=== PATIENT | male | born 1965 | race Hispanic/Latino ===

== ENCOUNTER 2017-12-27 17:10 | Observation (INO) | payer OTHER ==
--- NOTE | 2017-12-27 17:40 | ED PDOC ---
Arrival/HPI - General Chief Complaint: Chest Pain Time Seen by Provider: 12/27/17 17:30 Historian: Patient - History of Present Illness Narrative History of Present Illness (Text): 12/27/17 17:33 52 year old male, with elevated cholesterol hx, who presents to the emergency department complaining of chest pressure radiating to the left arm and jaw throughout the day. Patient notes associated SOB, dizziness/light headedness. Patient notes chest pain worsened upon arrival at a restaurant in [place]. Patient was subsequently brought in via EMS, who administered Aspirin and Nitroglycerin in the field. Patient experienced immediate relief from the medication. Patient notes he has experienced similar symptoms to prior discomfort in September. Patient denies any fevers, chills, sweats, abdominal pain, nausea, vomiting, diarrhea, back pain, neck pain, or any other complaint. pt denied LOC pt is here for further eval In sep 2017, pt also had similar chest pain complaint in his hometown of [place], where he had received nuclear stress tests/echo and was found to be negative; pt had been in contact with his cardiologists and was recommended next for Cardiac Catheterization PCP: Dr. 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[place]) Past Medical History - Provider Review Nursing Documentation Reviewed: Yes - Travel History Have you recently traveled outside [place] w/in the past 3 mons?: No - Past History Past History: No Previous - Infectious Disease Hx of Infectious Diseases: None - Tetanus Immunization Tetanus Immunization: Unknown Family/Social History - Physician Review Nursing Documentation Reviewed: Yes Family/Social History: Unknown Family HX Smoking Status: Current Some Days Smoker Frequency of alcohol use: Socially Hx Substance Use: No Hx Substance Use Treatment: No Allergies/Home Meds Allergies/Adverse Reactions: Allergies No Known Allergies Allergy (Verified 12/27/17 17:48) Home Medications: Home Meds Medication Instructions Recorded Confirmed No Known Home Med 12/27/17 12/27/17 Review of Systems - Review of Systems Constitutional: Normal Eyes: Normal ENT: Normal Respiratory: SOB Cardiovascular: Chest Pain (Chest pressure) Gastrointestinal: Normal. absent: Abdominal Pain, Diarrhea, Nausea, Vomiting Genitourinary Male: Normal. absent: Dysuria, Frequency, Hematuria, Urinary Output Changes Musculoskeletal: Normal. absent: Back Pain, Neck Pain Skin: Normal. absent: Rash Neurological: Dizziness Endocrine: Normal Hemo/Lymphatic: Normal Psychiatric: Normal Physical Exam Vital Signs Reviewed: Yes Vital Signs Temp Pulse Resp BP Pulse Ox 12/27/17 17:19 97.9 F 80 18 145/83 100 Temperature: Afebrile Blood Pressure: Hypertensive (mild) Pulse: Regular Respiratory Rate: Normal Appearance: Positive for: Well-Appearing, Non-Toxic, Uncomfortable, Other (alert /awake, GCS = 15, oriented x 3, resting in bed, uncomfortable, cooperative, NAD , follows command with ease) Pain Distress: None Mental Status: Positive for: Alert and Oriented X 3 - Systems Exam Head: Present: Atraumatic, Normocephalic Pupils: Present: PERRL, Other (no nystagmus, no photophobia, sclera anicteric, visual field intact b/l) Extroacular Muscles: Present: EOMI Conjunctiva: Present: Normal Ears: Present: Normal Mouth: Present: Moist Mucous Membranes, Normal Teeth, Other (uvula/tongue are midline, no exudate/lesions, intact dentitions, no drooling/stridor) Pharnyx: Present: Normal Nose (External): Present: Atraumatic Nose (Internal): Present: Normal Inspection Neck: Present: Normal Range of Motion, Trachea Midline, Other (intact ROM, no). No: Meningeal Signs, MIDLINE TENDERNESS Respiratory/Chest: Present: Clear to Auscultation, Good Air Exchange, Other ( CTA b/l, no w/r/r, no tachypenia). No: Respiratory Distress, Accessory Muscle Use Cardiovascular: Present: Regular Rate and Rhythm, Normal S1, S2. No: Murmurs Abdomen: Present: Normal Bowel Sounds, Other (well nourished male, no focal tenderness, no diane's sign, no mcburney's point tenderness, no masses/rebound/ guarding/rigidity). No: Tenderness, Distention, Peritoneal Signs Back: Present: Normal Inspection. No: CVA Tenderness, Midline Tenderness, Paraspinal Tenderness Upper Extremity: Present: Normal Inspection, Normal ROM, NORMAL PULSES, Neurovascularly Intact, Capillary Refill < 2s. No: Cyanosis, Edema Lower Extremity: Present: Normal Inspection, NORMAL PULSES, Normal ROM, Neurovascularly Intact, Capillary Refill < 2 s. No: Edema Neurological: Present: GCS=15, CN II-XII Intact, Speech Normal, Other (no facial asymmetries, no slurr speech, oriented x 3) Skin: Present: Warm, Normal Color, Other (cap refill < 1sec, no ulcerations, no petechiae). No: Rashes Psychiatric: Present: Alert, Oriented x 3, Normal Insight, Normal Concentration Medical Decision Making ED Course and Treatment: 12/27/17 17:42 Impression: 52 year old male who presents to the Emergency department complaining of chest pressure that radiates to the left arm and jaw. Differential Diagnosis included but are not limited to: Rule out ACS vs. Rule out PE Plan: R/O ACS -- labs -- acs eval -- IV -- observe -- Reassess and disposition Progress Notes: 1850 pt with decr chest pain, pt states pain is now 1-2/10 pt is awaiting lab results 12/27/17 19:50 Dr Cerna, hospitalists fabrication manager, contacted, made aware, agrees with admission pt remained comfortable, with negligible chest pain pt is made aware of his medical results agrees with admission/OBS Re-evaluation Time: 19:45 Reassessment Condition: Improved - Lab Interpretations Lab Results: 12/27/17 18:34 12/27/17 18:34 Lab Results 12/27/17 18:34: TSH 3rd Generation 1.34 12/27/17 18:34: Sodium 145, Potassium 3.5 L, Chloride 104, Carbon Dioxide 26, Anion Gap 19, BUN 12, Creatinine 0.8, Est GFR ( Amer) > 60, Est GFR (Non- Af Amer) > 60, Random Glucose 157 H, Calcium 9.6, Magnesium 2.0, Total Bilirubin 0.3, AST 33, ALT 39, Alkaline Phosphatase 60, Lactate Dehydrogenase 525, Total Creatine Kinase 61, Troponin I < 0.01, Total Protein 8.0, Albumin 4.8 , Globulin 3.3, Albumin/Globulin Ratio 1.5 12/27/17 18:34: PT 13.1 H, INR 1.15 H, APTT 32.5 12/27/17 18:34: WBC 6.4, RBC 4.37, Hgb 13.5 L, Hct 39.7 L, MCV 90.8, MCH 30.9, MCHC 34.0, RDW 12.8, Plt Count 251, MPV 10.4, Gran % 65.7, Lymph % (Auto) 28.0, Cobb % (Auto) 5.2, Eos % (Auto) 0.8 L, Baso % (Auto) 0.3, Gran # 4.17, Lymph # ( Auto) 1.8, Cobb # (Auto) 0.3, Eos # (Auto) 0.1, Baso # (Auto) 0.02 I have reviewed the lab results: Yes Interpretation: Abnormal lab values (slightly elevated GLUC) - RAD Interpretation Narrative RAD Interpretations (Text): 12/27/17 20:12 CXR - NAD, prelim Radiology Orders: 12/27/17 17:54 CHEST TWO VIEWS (PA/LAT) [RAD] Stat Core Piler: ED Physician - EKG Interpretation EKG Interpretation (Text): 12/27/17 19:54 NSR at 80 bpm, normal axis, + ectopy, qs in leads III/F, inverted T in leads V1 , no st changes, ABNL EKG; no old ekg to compare with Interpreted by ED Physician: Yes Type: 12 lead EKG Comparison: No previous EKG avail. - Medication Orders Current Medication Orders: Potassium Chloride (Klor-Con 10) 10 meq PO STAT STA Stop: 12/27/17 19:53 Discontinued Medications Nitroglycerin (Nitro-Bid 2% Oint) 1 ea TOP STAT STA Stop: 12/27/17 17:55 Last Admin: 12/27/17 18:48 Dose: 1 ea - Scribe Statement The provider has reviewed the documentation as recorded by the Scribe Yadira Lopez All medical record entries made by the Scribe were at my direction and personally dictated by me. I have reviewed the chart and agree that the record accurately reflects my personal performance of the history, physical exam, medical decision making, and the department course for this patient. I have also personally directed, reviewed, and agree with the discharge instructions and disposition. Disposition/Present on Arrival - Present on Arrival Any Indicators Present on Arrival: No History of DVT/PE: No History of Uncontrolled Diabetes: No Urinary Catheter: No History of Decub. Ulcer: No History Surgical Site Infection Following: None - Disposition Have Diagnosis and Disposition been Completed?: Yes Diagnosis: Chest pain with minimal risk for cardiac etiology Disposition: HOSPITALIZED Disposition Time: 19:50 Patient Plan: Admission, Observation Condition: STABLE Discharge Instructions (ExitCare): Chest Pain (ED) Forms: [facility] ([employer])
[2017-12-27] MEDS ORDERED: Nitroglycerin 2% Ointment Foilpak UD TOP STA (17:54)
[2017-12-27 18:57] LABS: ALB/GLOB RATIO 1.5 (1.1-1.8); ALBUMIN 4.8 g/dL (3.0-4.8); CALCIUM 9.6 mg/dL (8.4-10.5); GFR AFRICAN-AMERICAN > 60; GFR NON-AFRICAN AMERICAN > 60
[2017-12-27 19:09] LABS: TROPONIN I < 0.01 ng/mL
[2017-12-27 19:10] LABS: ALT/SGPT 39 U/L (7-56); AST/SGOT 33 U/L (17-59); BLOOD UREA NITROGEN 12 mg/dL (7-21); INR 1.15 (0.93-1.08); PARTIAL THROMBOPLASTIN TIME 32.5 Seconds (25.1-36.5); PROTHROMBIN TIME 13.1 SECONDS (9.4-12.5)
[2017-12-27 19:11] LABS: BASO # 0.02 K/mm3 (0.0-2.0); BASO % 0.3 % (0.0-3.0); EOS # 0.1 (0.0-0.7); EOS % 0.8 % (1.5-5.0); GRAN # 4.17 (1.4-6.5); GRAN % 65.7 % (50.0-68.0); HEMOGLOBIN 13.5 g/dL (14.0-18.0); LYMPH # 1.8 (1.2-3.4); MEAN CELL VOLUME 90.8 fl (80.0-105.0); MEAN CORPUSCULAR HEMOGLOBIN 30.9 pg (25.0-35.0); MEAN PLATELET VOLUME 10.4 fl (7.0-11.0); MONO # 0.3 (0.1-0.6); MONO % 5.2 % (1.0-6.0); RBC 4.37 10^6/uL (3.5-6.1); RED CELL DISTRIBUTION WIDTH 12.8 % (11.5-14.5); WHITE BLOOD COUNT 6.4 10^3/ul (4.5-11.0)
[2017-12-27] MEDS ORDERED: Potassium Chloride 10 mEq ER Tab PO STA (19:52)
[2017-12-27 20:01] LABS: URINE BILIRUBIN NEGATIVE (NEGATIVE); URINE BLOOD NEGATIVE (NEGATIVE); URINE COLOR YELLOW (YELLOW); URINE GLUCOSE (UA) NEGATIVE (NEGATIVE); URINE LEUKOCYTE ESTERASE NEGATIVE Leu/uL (NEGATIVE); URINE PROTEIN NEGATIVE mg/dL (<30 mg/dL); URINE UROBILINOGEN 0.2 E.U./dL (<1 E.U./dL)
[2017-12-27 20:02] LABS: URINE APPEARANCE CLEAR (CLEAR)
[2017-12-27] MEDS ORDERED: Heparin25000 units/250ml 1/2NS 25,000 UNITS/250 ML BAG IV SCH (20:15)
[2017-12-27] MEDS ORDERED: Morphine 2 mg/2 mL syringe IVP PRN (20:19)
[2017-12-27] MEDS ORDERED: Morphine 4 mg/ml ISec IVP PRN (20:26)
[2017-12-27 21:12] LABS: B-TYPE NATRIURETIC PEPTIDE 19.5 pg/mL (0-450)
--- NOTE | 2017-12-27 21:43 | CP.PCM.HP ---
<Corey Magaña - Last Filed: 12/27/17 21:48> History of Present Illness - History of Present Illness History of Present Illness: CC: Chest pain 52 year old male, with PMH of elevated cholesterol, who presents to the ED complaining of chest pain and sob. Patient states that his chest pain and sob first started yesterday but was initially very mild. Than about 4:30pm today at a restaurant he got a sudden worsening of squeezing chest pain and pressure accompanied by sob. The pain radiates to the left arm and jaw throughout the day. EMS was called which administered Aspirin and Nitroglycerin in the field with relief of pain. Patient admits to similar symptoms before. Patient has a history of having costochondritis before when he was 37 years old and had a cardiac cath which was normal at the time. Patient has subsequently been worked up multiple times in [place] with echo's and stress tests most recently which was neg however states his doctor recommended a cardiac cath the "next step". No other complaints. 12 Point ROS performed and neg other than stated above. PMH: HLD PSH: Cardiac cath, and L knee surgery Med: refer to [facility] ALL: NKA SH: denies any drinking, smoking, or drug usuage FH: Father with CAD, and Grandfather from heart dx Present on Admission - Present on Admission Any Indicators Present on Admission: No Past Patient History - Infectious Disease Hx of Infectious Diseases: None - Tetanus Immunizations Tetanus Immunization: Unknown - Past Social History Smoking Status: Current Some Days Smoker - CARDIAC Hx Angina: Yes Other/Comment: cardiac cath no stents - PSYCHIATRIC Hx Substance Use: No - SURGICAL HISTORY Hx Surgeries: No - ANESTHESIA Hx Anesthesia: No Hx Anesthesia Reactions: No Hx Malignant Hyperthermia: No Meds Allergies/Adverse Reactions: Allergies Allergy/AdvReac Type Severity Reaction Status Date / Time No Known Allergies Allergy Verified 12/27/17 17:48 Physical Exam - Head Exam Head Exam: ATRAUMATIC, NORMOCEPHALIC - Eye Exam Eye Exam: EOMI, PERRL - ENT Exam ENT Exam: Mucous Membranes Moist - Respiratory Exam Respiratory Exam: Clear to Auscultation Bilateral. absent: Rales, Wheezes - Cardiovascular Exam Cardiovascular Exam: REGULAR RHYTHM, RRR, +S1, +S2 - GI/Abdominal Exam GI & Abdominal Exam: Normal Bowel Sounds, Soft. absent: Tenderness - Extremities Exam Extremities exam: Negative for: calf tenderness, pedal edema - Neurological Exam Neurological exam: Alert, CN II-XII Intact, Oriented x3 - Psychiatric Exam Psychiatric exam: Normal Affect, Normal Mood - Skin Skin Exam: Dry Results - Vital Signs Recent Vital Signs: Last Vital Signs Temp 97.9 F 12/27/17 17:19 Pulse 75 12/27/17 20:30 Resp 20 12/27/17 20:30 BP 114/75 12/27/17 20:30 Pulse Ox 98 12/27/17 20:30 - Labs Result Diagrams: 12/27/17 18:34 12/27/17 18:34 Assessment & Plan - Assessment and Plan (Free Text) Assessment: 52 year old male, with PMH of elevated cholesterol, who presents to the ED complaining of chest pain and sob. 1. Chest pain likely 2/2 unstable angina - Asa 81 mg daily - Heparin ggt bolus and ggt - Nitroglycerin SL as needed - Morphine PRN - Serial troponin and EKG - Cardiology consulted for recs - Started on Lipitor and BB - F/u Hba1c and Lipid profile - F/U Echo - EKG and CXR reviewed - Morning labs - Tele monitoring 2. Hypokalemia - K of 3.5 - KCL 40mq PO x 1 - Replete as needed 3. Hx of HLD - Started on Lipitor 4. GI/DVT ppc -Protonix and heparin ggt Case and plan was reviewed and discussed in detail with Dr Cerna. <Eryn PRETTY,Moises - Last Filed: 12/28/17 13:19> Results - Vital Signs Recent Vital Signs: Last Vital Signs Temp 97.7 F 12/28/17 12:00 Pulse 76 12/28/17 12:23 Resp 20 12/28/17 12:00 BP 107/71 12/28/17 12:23 Pulse Ox 97 12/28/17 06:00 - Labs Result Diagrams: 12/28/17 05:30 12/28/17 05:30 Labs: Laboratory Results - last 24 hr 12/28/17 12/28/17 12/28/17 00:45 05:30 05:30 WBC RBC Hgb Hct MCV MCH MCHC RDW Plt Count MPV Gran % Lymph % (Auto) [facility] % (Auto) Eos % (Auto) Baso % (Auto) Gran # Lymph # (Auto) [facility] [facility] # (Auto) Eos # (Auto) Baso # (Auto) APTT 43.7 H Sodium 147 Potassium 4.2 Chloride 110 H Carbon Dioxide 25 Anion Gap 17 BUN 14 Creatinine 0.7 L Est GFR ( Amer) > 60 Est GFR (Non-Af Amer) > 60 Random Glucose 103 Calcium 9.3 Total Bilirubin 0.4 AST 21 ALT 31 Alkaline Phosphatase 55 Troponin I 0.01 < 0.01 Total Protein 7.0 Albumin 4.2 Globulin 2.8 Albumin/Globulin Ratio 1.5 12/28/17 05:30 WBC 4.7 D RBC 4.24 Hgb 12.9 L Hct 38.8 L MCV 91.5 MCH 30.4 MCHC 33.2 RDW 13.1 Plt Count 215 MPV 10.3 Gran % 53.7 Lymph % (Auto) 34.5 [facility] % (Auto) 9.9 H Eos % (Auto) 1.5 Baso % (Auto) 0.4 Gran # 2.54 Lymph # (Auto) 1.6 [facility] # (Auto) 0.5 Eos # (Auto) 0.1 Baso # (Auto) 0.02 APTT Sodium Potassium Chloride Carbon Dioxide Anion Gap BUN Creatinine Est GFR ( Amer) Est GFR (Non-Af Amer) Random Glucose Calcium Total Bilirubin AST ALT Alkaline Phosphatase Troponin I Total Protein Albumin Globulin Albumin/Globulin Ratio Attending/Attestation - Attestation I have personally seen and examined this patient.: Yes I have fully participated in the care of the patient.: Yes I have reviewed all pertinent clinical information: Yes Notes (Text): -I agree with the above H&P completed by the resident physician.
[2017-12-27] MEDS ORDERED: Potassium Chloride 40 mEq/30 ml LIQ UD PO STA (21:49)
[2017-12-28 05:25] VITALS: RESP 20
[2017-12-28] MEDS ORDERED: Pantoprazole 40 mg EC Tab PO SCH (06:00)
[2017-12-28 06:26] LABS: BASO # 0.02 K/mm3 (0.0-2.0); BASO % 0.4 % (0.0-3.0); EOS # 0.1 (0.0-0.7); EOS % 1.5 % (1.5-5.0); GRAN # 2.54 (1.4-6.5); GRAN % 53.7 % (50.0-68.0); HEMOGLOBIN 12.9 g/dL (14.0-18.0); LYMPH # 1.6 (1.2-3.4); LYMPH % 34.5 % (22.0-35.0); MEAN CELL VOLUME 91.5 fl (80.0-105.0); MEAN CORPUSCULAR HEMOGLOBIN 30.4 pg (25.0-35.0); MEAN CORPUSCULAR HGB CONC 33.2 g/dl (31.0-37.0); MEAN PLATELET VOLUME 10.3 fl (7.0-11.0); MONO # 0.5 (0.1-0.6); MONO % 9.9 % (1.0-6.0); RBC 4.24 10^6/uL (3.5-6.1); RED CELL DISTRIBUTION WIDTH 13.1 % (11.5-14.5); WHITE BLOOD COUNT 4.7 10^3/ul (4.5-11.0)
[2017-12-28 06:53] LABS: TROPONIN I < 0.01 ng/mL
[2017-12-28 07:28] LABS: ALB/GLOB RATIO 1.5 (1.1-1.8); ALBUMIN 4.2 g/dL (3.0-4.8); ALT/SGPT 31 U/L (7-56); AST/SGOT 21 U/L (17-59); BLOOD UREA NITROGEN 14 mg/dL (7-21); CALCIUM 9.3 mg/dL (8.4-10.5); GFR AFRICAN-AMERICAN > 60; GFR NON-AFRICAN AMERICAN > 60
[2017-12-28 07:30] VITALS: O2SAT 97
--- NOTE | 2017-12-28 08:39 | RAD ---
HISTORY: chest pain COMPARISON: No prior. TECHNIQUE: Chest PA and lateral FINDINGS: LUNGS: No active pulmonary disease. PLEURA: No significant pleural effusion identified. No pneumothorax apparent. CARDIOVASCULAR: Normal. OSSEOUS STRUCTURES: No significant abnormalities. VISUALIZED UPPER ABDOMEN: Normal. OTHER FINDINGS: None. IMPRESSION: No active disease.
--- NOTE | 2017-12-28 11:53 | CARD ---
APPROVED REPORT EKG Measurement Heart [id number] <Conclusion> Normal sinus rhythm No change
[2017-12-28 12:24] VITALS: BP 107/71; PULSE 76
[2017-12-28 12:27] VITALS: TEMP 97.7
--- NOTE | 2017-12-28 14:08 | CARD ---
APPROVED REPORT EKG Measurement Heart [id number] <Conclusion> Sinus rhythm with sinus arrhythmia with occasional premature ventricular complexes Otherwise normal ECG
--- NOTE | 2017-12-28 15:08 | CP.PCM.DIS ---
<Ap Hopson - Last Filed: 12/28/17 15:00> Provider - Provider Date of Admission: 12/27/17 19:47 Attending physician: Gogo Corona MD Consults: Cardio - Elkind Time Spent in preparation of Discharge (in minutes): 50 Hospital Course - Lab Results Lab Results: Most Recent Lab Values WBC 4.7 10^3/ul (4.5-11.0) D 12/28/17 05:30 RBC 4.24 10^6/uL (3.5-6.1) 12/28/17 05:30 Hgb 12.9 g/dL (14.0-18.0) L 12/28/17 05:30 Hct 38.8 % (42.0-52.0) L 12/28/17 05:30 MCV 91.5 fl (80.0-105.0) 12/28/17 05:30 MCH 30.4 pg (25.0-35.0) 12/28/17 05:30 MCHC 33.2 g/dl (31.0-37.0) 12/28/17 05:30 RDW 13.1 % (11.5-14.5) 12/28/17 05:30 Plt Count 215 10^3/uL (120.0-450.0) 12/28/17 05:30 MPV 10.3 fl (7.0-11.0) 12/28/17 05:30 Gran % 53.7 % (50.0-68.0) 12/28/17 05:30 Lymph % (Auto) 34.5 % (22.0-35.0) 12/28/17 05:30 [place] % (Auto) 9.9 % (1.0-6.0) H 12/28/17 05:30 Eos % (Auto) 1.5 % (1.5-5.0) 12/28/17 05:30 Baso % (Auto) 0.4 % (0.0-3.0) 12/28/17 05:30 Gran # 2.54 (1.4-6.5) 12/28/17 05:30 Lymph # (Auto) 1.6 (1.2-3.4) 12/28/17 05:30 [place] # (Auto) 0.5 (0.1-0.6) 12/28/17 05:30 Eos # (Auto) 0.1 (0.0-0.7) 12/28/17 05:30 Baso # (Auto) 0.02 K/mm3 (0.0-2.0) 12/28/17 05:30 PT 13.1 SECONDS (9.4-12.5) H 12/27/17 18:34 INR 1.15 (0.93-1.08) H 12/27/17 18:34 APTT 43.7 Seconds (25.1-36.5) H 12/28/17 05:30 Sodium 147 mmol/L (132-148) 12/28/17 05:30 Potassium 4.2 mmol/L (3.6-5.0) 12/28/17 05:30 Chloride 110 mmol/L (98-107) H 12/28/17 05:30 Carbon Dioxide 25 mmol/L (21-33) 12/28/17 05:30 Anion Gap 17 (10-20) 12/28/17 05:30 BUN 14 mg/dL (7-21) 12/28/17 05:30 Creatinine 0.7 mg/dl (0.8-1.5) L 12/28/17 05:30 Est GFR ( Amer) > 60 12/28/17 05:30 Est GFR (Non-Af Amer) > 60 12/28/17 05:30 Random Glucose 103 mg/dL (70-110) 12/28/17 05:30 Hemoglobin A1c 6.0 % (4.2-6.5) 12/27/17 18:34 Calcium 9.3 mg/dL (8.4-10.5) 12/28/17 05:30 Magnesium 2.0 mg/dL (1.7-2.2) 12/27/17 18:34 Total Bilirubin 0.4 mg/dL (0.2-1.3) 12/28/17 05:30 AST 21 U/L (17-59) 12/28/17 05:30 ALT 31 U/L (7-56) 12/28/17 05:30 Alkaline Phosphatase 55 U/L (38-126) 12/28/17 05:30 Lactate Dehydrogenase 525 U/L (333-699) 12/27/17 18:34 Total Creatine Kinase 61 U/L (35-230) 12/27/17 18:34 Troponin I < 0.01 ng/mL 12/28/17 05:30 NT-Pro-B Natriuret Pep 19.5 pg/mL (0-450) 12/27/17 18:34 Total Protein 7.0 g/dL (5.8-8.3) 12/28/17 05:30 Albumin 4.2 g/dL (3.0-4.8) 12/28/17 05:30 Globulin 2.8 gm/dL 12/28/17 05:30 Albumin/Globulin Ratio 1.5 (1.1-1.8) 12/28/17 05:30 Triglycerides 191 mg/dL (35-160) H 12/27/17 18:34 Cholesterol 190 mg/dL (130-200) 12/27/17 18:34 LDL Cholesterol Direct 99 mg/dL (0-129) 12/27/17 18:34 HDL Cholesterol 37 mg/dL (29-60) 12/27/17 18:34 TSH 3rd Generation 1.34 mIU/mL (0.46-4.68) 12/27/17 18:34 Urine Color Yellow (YELLOW) 12/27/17 19:45 Urine Appearance Clear (CLEAR) 12/27/17 19:45 Urine pH 6.0 (4.7-8.0) 12/27/17 19:45 Ur Specific [place] 1.015 (1.005-1.035) 12/27/17 19:45 Urine Protein Negative mg/dL (<30 mg/dL) 12/27/17 19:45 Urine Glucose (UA) Negative mg/dL (NEGATIVE) 12/27/17 19:45 Urine Ketones Negative mg/dL (NEGATIVE) 12/27/17 19:45 Urine Blood Negative (NEGATIVE) 12/27/17 19:45 Urine Nitrate Negative (NEGATIVE) 12/27/17 19:45 Urine Bilirubin Negative (NEGATIVE) 12/27/17 19:45 Urine Urobilinogen 0.2 E.U./dL (<1 E.U./dL) 12/27/17 19:45 Ur Leukocyte Esterase Negative Byron/uL (NEGATIVE) 12/27/17 19:45 - Hospital Course Hospital Course: As per admission documentation 52 year old male, with PMH of elevated cholesterol, who presents to the ED complaining of chest pain and sob. Patient states that his chest pain and sob first started yesterday but was initially very mild. Than about 4:30pm today at a restaurant he got a sudden worsening of squeezing chest pain and pressure accompanied by sob. The pain radiates to the left arm and jaw throughout the day. EMS was called which administered Aspirin and Nitroglycerin in the field with relief of pain. Patient admits to similar symptoms before. Patient has a history of having costochondritis before when he was 37 years old and had a cardiac cath which was normal at the time. Patient has subsequently been worked up multiple times in [place] with echo's and stress tests most recently which was neg however states his doctor recommended a cardiac cath the "next step". No other complaints. Hospital Course Patient was admitted for chest pain r/o ACS. Cardiology consulted, Dr. Stevenson, case discussed. Patient started on aspirin, heparin drip and given nitro SL. Patient later placed on nitro paste, which quickly resolved the pain. EKG showed no ST wave changes, trops negative x3. Patient started on lipitor due to hx of HLD. He was also placed on a BB, which was stopped upon discharge due to bradycardia in 30s over night. Patient remained pain free for throughout the rest of his hospital stay. He was discharged home with instructions to follow up with his compliance officer in [place] which patient stated he had an appointment set for 1600 on date of discharge. He was discharged with the following instructions. Discharge Instructions 1. Follow up with Engineering Officer, Dr. Rico Méndez, at 4pm this afternoon 2 Follow up with primary care doctor, Dr. Shelley in 1 week 3. Do not take nitrostat within 24 hours of viagra or levitra, or 48 hours of cialis . Nitrostat is the nitrate under the tongue when experience chest pain 4. Please check with compliance officer for re-starting metoprolol. 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 absent: Accessory Muscle Use, Rales, Rhonchi, Wheezes, Respiratory Distress - Cardiovascular Exam Cardiovascular Exam: REGULAR RHYTHM, +S1, +S2 - GI/Abdominal Exam GI & Abdominal Exam: Normal Bowel Sounds, Soft, Unremarkable. absent: Distended , Firm, Guarding, Rigid, Tenderness - Extremities Exam Extremities exam: normal inspection, pedal pulses present - Neurological Exam Neurological exam: Alert, CN II-XII Intact, Normal Gait, Oriented x3 - Psychiatric Exam Psychiatric exam: Normal Affect, Normal Mood - Skin Skin Exam: Dry, Warm Discharge Plan - Discharge Medications Prescriptions: Aspirin [Aspirin Chewable] 81 mg PO DAILY #14 chew Atorvastatin [Lipitor] 10 mg PO DIN #14 tab Nitroglycerin [Nitrostat] 0.4 mg SL BID PRN #10 tab.subl PRN Reason: Other - Follow Up Plan Condition: STABLE Disposition: HOME/ ROUTINE Instructions: Chest Pain That Is Not Caused by the Heart (DC), Treatment Choices for Angina (Chest Pain), Aspirin, Atorvastatin, Chest Pain (DC), Chest Pain (GEN) Additional Instructions: 1. Follow up with Engineering Officer, Dr. Rico Méndez, at 4pm this afternoon 2 Follow up with primary care doctor, Dr. Shelley in 1 week 3. Do not take nitrostat within 24 hours of viagra or levitra, or 48 hours of cialis . Nitrostat is the nitrate under the tongue when experience chest pain 4. Please check with compliance officer for re-starting metoprolol. 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 Referrals: [facility], [Non-Staff] - Follow up with primary <Gogo Corona - Last Filed: 12/28/17 15:30> Provider - Provider Date of Admission: 12/27/17 19:47 Attending physician: Gogo Corona MD Hospital Course - Lab Results Lab Results: Most Recent Lab Values WBC 4.7 10^3/ul (4.5-11.0) D 12/28/17 05:30 RBC 4.24 10^6/uL (3.5-6.1) 12/28/17 05:30 Hgb 12.9 g/dL (14.0-18.0) L 12/28/17 05:30 Hct 38.8 % (42.0-52.0) L 12/28/17 05:30 MCV 91.5 fl (80.0-105.0) 12/28/17 05:30 MCH 30.4 pg (25.0-35.0) 12/28/17 05:30 MCHC 33.2 g/dl (31.0-37.0) 12/28/17 05:30 RDW 13.1 % (11.5-14.5) 12/28/17 05:30 Plt Count 215 10^3/uL (120.0-450.0) 12/28/17 05:30 MPV 10.3 fl (7.0-11.0) 12/28/17 05:30 Gran % 53.7 % (50.0-68.0) 12/28/17 05:30 Lymph % (Auto) 34.5 % (22.0-35.0) 12/28/17 05:30 Gladwin % (Auto) 9.9 % (1.0-6.0) H 12/28/17 05:30 Eos % (Auto) 1.5 % (1.5-5.0) 12/28/17 05:30 Baso % (Auto) 0.4 % (0.0-3.0) 12/28/17 05:30 Gran # 2.54 (1.4-6.5) 12/28/17 05:30 Lymph # (Auto) 1.6 (1.2-3.4) 12/28/17 05:30 [place] # (Auto) 0.5 (0.1-0.6) 12/28/17 05:30 Eos # (Auto) 0.1 (0.0-0.7) 12/28/17 05:30 Baso # (Auto) 0.02 K/mm3 (0.0-2.0) 12/28/17 05:30 PT 13.1 SECONDS (9.4-12.5) H 12/27/17 18:34 INR 1.15 (0.93-1.08) H 12/27/17 18:34 APTT 43.7 Seconds (25.1-36.5) H 12/28/17 05:30 Sodium 147 mmol/L (132-148) 12/28/17 05:30 Potassium 4.2 mmol/L (3.6-5.0) 12/28/17 05:30 Chloride 110 mmol/L (98-107) H 12/28/17 05:30 Carbon Dioxide 25 mmol/L (21-33) 12/28/17 05:30 Anion Gap 17 (10-20) 12/28/17 05:30 BUN 14 mg/dL (7-21) 12/28/17 05:30 Creatinine 0.7 mg/dl (0.8-1.5) L 12/28/17 05:30 Est GFR ( Amer) > 60 12/28/17 05:30 Est GFR (Non-Af Amer) > 60 12/28/17 05:30 Random Glucose 103 mg/dL (70-110) 12/28/17 05:30 Hemoglobin A1c 6.0 % (4.2-6.5) 12/27/17 18:34 Calcium 9.3 mg/dL (8.4-10.5) 12/28/17 05:30 Magnesium 2.0 mg/dL (1.7-2.2) 12/27/17 18:34 Total Bilirubin 0.4 mg/dL (0.2-1.3) 12/28/17 05:30 AST 21 U/L (17-59) 12/28/17 05:30 ALT 31 U/L (7-56) 12/28/17 05:30 Alkaline Phosphatase 55 U/L (38-126) 12/28/17 05:30 Lactate Dehydrogenase 525 U/L (333-699) 12/27/17 18:34 Total Creatine Kinase 61 U/L (35-230) 12/27/17 18:34 Troponin I < 0.01 ng/mL 12/28/17 05:30 NT-Pro-B Natriuret Pep 19.5 pg/mL (0-450) 12/27/17 18:34 Total Protein 7.0 g/dL (5.8-8.3) 12/28/17 05:30 Albumin 4.2 g/dL (3.0-4.8) 12/28/17 05:30 Globulin 2.8 gm/dL 12/28/17 05:30 Albumin/Globulin Ratio 1.5 (1.1-1.8) 12/28/17 05:30 Triglycerides 191 mg/dL (35-160) H 12/27/17 18:34 Cholesterol 190 mg/dL (130-200) 12/27/17 18:34 LDL Cholesterol Direct 99 mg/dL (0-129) 12/27/17 18:34 HDL Cholesterol 37 mg/dL (29-60) 12/27/17 18:34 TSH 3rd Generation 1.34 mIU/mL (0.46-4.68) 12/27/17 18:34 Urine Color Yellow (YELLOW) 12/27/17 19:45 Urine Appearance Clear (CLEAR) 12/27/17 19:45 Urine pH 6.0 (4.7-8.0) 12/27/17 19:45 Ur Specific [place] 1.015 (1.005-1.035) 12/27/17 19:45 Urine Protein Negative mg/dL (<30 mg/dL) 12/27/17 19:45 Urine Glucose (UA) Negative mg/dL (NEGATIVE) 12/27/17 19:45 Urine Ketones Negative mg/dL (NEGATIVE) 12/27/17 19:45 Urine Blood Negative (NEGATIVE) 12/27/17 19:45 Urine Nitrate Negative (NEGATIVE) 12/27/17 19:45 Urine Bilirubin Negative (NEGATIVE) 12/27/17 19:45 Urine Urobilinogen 0.2 E.U./dL (<1 E.U./dL) 12/27/17 19:45 Ur Leukocyte Esterase Negative Byron/uL (NEGATIVE) 12/27/17 19:45 Attending/Attestation - Attestation I have personally seen and examined this patient.: Yes I have fully participated in the care of the patient.: Yes I have reviewed all pertinent clinical information, including history, physical exam and plan: Yes Notes (Text): 12/28/17 15:26 52 year old male with past medical history of dyslipidemia who presented with chest pain. Serial cardiac enzymes were negative and ACS was ruled out. His chest pain resolved. He states he had a recent negative stress test with his compliance officer this year. He was seen by cardiology and had echocardiogram today. He is on aspirin and statin. Metoprolol was held due to bradycardia. He was cleared for discharge by cardiology with outpatient cardiology followup ( states he has appointment today). Patient is discharged home to follow up with his pmd. Follow up with compliance officer today. Gogo Corona MD Hospitalist.
--- NOTE | 2017-12-28 19:24 | CON ---
DATE: 12/28/2017 INDICATIONS: Chest pain. HISTORY OF PRESENT ILLNESS: This is a 52-year-old man admitted with chest pain, described as a squeezing upper chest discomfort. He was visiting [place] and experienced this discomfort which was worse than prior episodes earlier in the day. He felt he could not drive. He pulled over the side of the road and called EMS. Subsequently, he has had resolution of his chest pain. He is admitted to telemetry. There were 3 sets of negative troponins. His initial EKG was benign. He has a long history of chest pain. He underwent a cardiac catheterization 15 years ago, which was apparently normal. He has undergone nuclear stress tests over the years, the most recent in 09/2017. Apparently, at that time, the nuclear stress test and an echocardiogram were unremarkable. He describes chest pain as sometimes exertional and sometimes at rest. It is not pleuritic. It is associated with shortness of breath. It sometimes radiates into his neck and left arm. He does not describe orthopnea, PND, syncope, presyncope, lightheadedness, or dizziness. There is no edema or claudication. There is no fever, chills, cough, sputum production, or hemoptysis. There is no abdominal pain, nausea, vomiting, diarrhea, constipation, or melena. Additional past medical history includes hyperlipidemia, left knee surgery, possible costochondritis in the past. There is no history of rheumatic fever, myocardial infarction, congestive heart failure, arrhythmia, diabetes, stroke, TIA, or gout. MEDICATIONS: He was on no medications at the time of admission. ALLERGIES: THERE WERE NO MEDICATION ALLERGIES REPORTED. SOCIAL HISTORY: He does not smoke. He does not drink significantly. FAMILY HISTORY: Positive for heart disease. REVIEW OF SYSTEMS: A 10-point review of systems otherwise unremarkable except as noted above. PHYSICAL EXAMINATION: GENERAL: He is a well-developed male, sitting in bed on telemetry, in no acute distress. VITAL SIGNS: Notable for sinus rhythm, afebrile, 72 beats per minute, blood pressure 106/61, respirations 18 to 20, O2 sat 97% to 100% on room air. HEENT: Reveal no neck vein distention, thyromegaly, or carotid bruits. Mucous membranes are moist. Conjunctivae are pink. NECK: Supple. LUNGS: Lung nagel clear throughout. HEART: Reveals normal first and second heart sounds. No murmur, gallop, rub, or click. ABDOMEN: Soft, bowel sounds present. No mass, organomegaly, tenderness, rebound, or guarding. No CVA tenderness. No palpable abdominal aortic aneurysm. EXTREMITIES: Reveal no cyanosis, clubbing, or edema. NEUROLOGIC: Awake, alert, and oriented. PSYCHIATRIC: Normal as to mood and affect. SKIN: Warm and dry. No rash or cellulitis. LABORATORY AND IMAGING: A chest x-ray revealed no active disease. EKG reveals regular sinus rhythm and was within normal limits. White count normal, hemoglobin 12.9, hematocrit 38.8, platelet count normal. PT and INR 13.1 and 1.15; PTT 32.5, repeat 43.7 while on heparin. Electrolytes normal except for initial potassium of 3.5, repeat 4.2. BUN, creatinine, blood sugar, magnesium, and LFTs all unremarkable. CK 61. Three troponins are negative. BNP 19.5. Total cholesterol 190, triglycerides 191, LDL 99, HDL 37. TSH is normal. Urinalysis is unremarkable. IMPRESSION: Guilherme Smith is a 52-year-old man with recurring severe chest pain with some typical features and strong family history of heart disease, but with negative workups over the years including a negative cardiac catheterization 15 years ago and a recent negative nuclear stress test on [place]. At this time, a cardiac catheterization seems indicated given his severe symptoms, frequent recurrences, and risk factors. He wishes to have this done by his physicians in [place]. In the meantime, we will give him aspirin, metoprolol, and Lipitor. If he wishes to have a cardiac catheterization here, we could arrange this for tomorrow. I believe he has already been in touch with his monitoring tech and arrangements are being made for this to be done in [place]. I will check his EKG this morning. I will order an echocardiogram for completeness. He can be out of bed and ambulate. Shaun Stevenson MD KYUNG
--- NOTE | 2017-12-29 09:16 | CARD ---
APPROVED REPORT EXAM: Two-dimensional and M-mode echocardiogram with Doppler and color Doppler. Other Information Quality : AverageRhythm : INDICATION Chest Pain 2D DIMENSIONS IVSd0.9 (0.7-1.1cm)LVDd5.0 (3.9-5.9cm) PWd0.9 (0.7-1.1cm)LVDs3.3 (2.5-4.0cm) FS (%) 34.0 %LVEF (%)62.0 (>50%) M-Mode DIMENSIONS Aortic Root3.80 (2.2-3.7cm)Aortic Cusp Exc.2.20 (1.5-2.0cm) Aortic Valve AoV Peak Smrafdlg311.0cm/s Mitral Valve MV E Xpdynfjj97.1cm/sMV A Pdpjkjbl44.3cm/sE/A ratio1.2 TDI Lateral E' Peak V9.46cm/sMedial E' Peak V6.24cm/sE/Lateral E'7.0 E/Medial E'10.6 Pulmonary Valve PV Peak Dfpdxlde73.1cm/sPV Peak Grad.2mmHg Tricuspid Valve TR Peak [id number]/sRAP [id number] Peak Gr.17mmHg [id number] LEFT VENTRICLE The left ventricle is normal size. There is normal left ventricular wall thickness. The left ventricular function is normal. The left ventricular ejection fraction is within the normal range. There is normal LV segmental wall motion. RIGHT VENTRICLE The right ventricle is normal size. ATRIA The left atrium size is normal. The right atrium size is normal. The interatrial septum is intact with no evidence for an atrial septal defect. AORTIC VALVE The aortic valve is normal in structure. MITRAL VALVE The mitral valve is normal in structure. Mitral regurgitation is trace. TRICUSPID VALVE The tricuspid valve is normal in structure. There is trace tricuspid regurgitation. PULMONIC VALVE The pulmonic valve is not well visualized. GREAT VESSELS The aortic root is normal in size. PERICARDIAL EFFUSION There is no pericardial effusion. <Conclusion> The left ventricle is normal size. There is normal left ventricular wall thickness. The left ventricular function is normal.
== END 2017-12-28 13:24 | disposition home or self-care (01) ==
LOC: ED 17:10 → ERH 19:47 → 2RSO 22:10
PROVIDERS: ADMIT Hospitalist; ATTEND Internal Medicine
DX: I20.0 Unstable angina (principal); E78.00 Pure hypercholesterolemia, unspecified; E78.5 Hyperlipidemia, unspecified; E87.6 Hypokalemia; Z79.82 Long term (current) use of aspirin; F17.200 Nicotine dependence, unspecified, uncomplicated; Z82.49 Family history of ischemic heart disease and other diseases of the circulatory system
CPT/HCPCS: 36415; 71046; 80053; 80061; 81003; 82550; 83036; 83615; 83735; 83880; 84443; 84484; 85025; 85610; 85730; 93005; 93306; 99285; G0378; J1644; J3480